=== PATIENT | female | born 1980 | race Hispanic/Latino ===

== ENCOUNTER 2020-04-30 07:53 | Inpatient (IN) | payer OTHER ==
[~2020-04-30] VITALS: Ht 157.5 cm; Wt 83.9 kg
--- NOTE | 2020-04-30 10:09 | PR ---
[facility] [address] [facility] [place], [place] [address] Signed Progress Notes IP Datetime Report Generated by CPN: 04/30/2020 10:09 PROGRESS NOTES: [id number] Impression: Normal Progression of Labor Procedures: Artificial ROM; Scalp Electrode Plan: Continue Present Management; Anticipate Vaginal Delivery VITAL SIGNS: [id number] Vital Signs: Reviewed; Within Normal Limits EXAM: [id number] Dilatation: 4.0 Effacement: 75 Station: -2 Contractions: trimble MEMBRANES: [id number] Membranes Status: Ruptured Comments: Getting uncomfortable, will call for Epidural. FETUS A: [id number] FHR Baseline: 140 Variability: Moderate 6-25bpm Accelerations: 10X10 Presentation: Vertex FETUS B: [id number] Signing Physician: Diane Fairbanks MD Copies: ~ *Electronically Signed* 04/30/20 1009 DIANE FAIRBANKS MD PATIENT NAME: LETY AN PROGRESS NOTE DATE OF : 80 PHYSICIAN: DIANE FAIRBANKS MD RPT #: [id number] REPORT IS CONFIDENTIAL AND NOT TO BE RELEASED WITHOUT AUTHORIZATION
--- NOTE | 2020-05-01 12:37 | PR ---
[facility] [address] [facility] [place] [address] Signed PP Progress Notes Datetime Report Generated by CPN: 05/01/2020 12:37 SUBJECTIVE: [id number] Pain: Within Normal Limits Nausea/Vomiting: Denies Vital Signs: [id number] Vital Signs: Reviewed; Within Normal Limits Notable Details: PP Hgb/Hct = 12.1/36.5 Abdomen/Uterus: Normal Lochia: Normal Extremities: Normal IMPRESSION/PLAN/PROCEDURES: [id number] Impression: Normal Progression Plan: Discharge Procedures: None Progress Notes: Doing well, without complaint, wants to go home. Signing Physician: Diane Fairbanks MD Copies: ~ *Electronically Signed* 05/01/20 1237 DIANE FAIRBANKS MD PATIENT NAME: LETY AN PROGRESS NOTE DATE OF : 80 PHYSICIAN: DIANE FAIRBANKS MD RPT #: [id number] REPORT IS CONFIDENTIAL AND NOT TO BE RELEASED WITHOUT AUTHORIZATION
== END 2020-05-01 14:00 | disposition home or self-care (01) | DRG 807 ==
LOC: FBC 07:53
PROVIDERS: ADMIT General Practice; ATTEND General Practice
PROC: 10E0XZZ Delivery of Products of Conception, External Approach (ICD-10-PCS; principal; 2020-04-30)
PROC: 10907ZC Drainage of Amniotic Fluid, Therapeutic from Products of Conception, Via Natural or Artificial Opening (ICD-10-PCS; 2020-04-30)
PROC: 00HU33Z Insertion of Infusion Device into Spinal Canal, Percutaneous Approach (ICD-10-PCS; 2020-04-30)
PROC: 3E0R3BZ Introduction of Anesthetic Agent into Spinal Canal, Percutaneous Approach (ICD-10-PCS; 2020-04-30)
DX: O24.424 Gestational diabetes mellitus in childbirth, insulin controlled (principal); Z37.0 Single live birth; Z3A.39 39 weeks gestation of pregnancy; O62.3 Precipitate labor; Z86.19 Personal history of other infectious and parasitic diseases
CPT/HCPCS: 01960; 36415; 85027; A9270; J2001; J2590; J7042

== ENCOUNTER 2021-01-17 07:20 | Day surgery (SDC) | payer OTHER ==
[~2021-01-17] VITALS: Ht 157.5 cm; Wt 73.2 kg
[~2021-01-17 07:20] MED LIST: PRENA1 PEARL S1 EACH PO
--- NOTE | 2021-01-17 12:44 | NUR ---
01/17/21 1244 Kya Winter 1237- PT ARRIVES TO PACU AROUSABLE TO VOICE. RESP EVEN AND UNLABORED. OXYGEN SAT HIGH 90'S TO 100% ON 10L VIA MASK. 1241- PT PROVIDED WARM BLANKETS PER HER REQUEST. PT ASKS IF THE SURGEYR IS OVER. PT UPDATED WHERE SHE IS AND HER SURGERY IS DONE. PT NODS. OXYGEN TITRATED DOWN TO 6L VIA MASK.
--- NOTE | 2021-01-17 13:42 | NUR ---
PATIENT BACK TO ROOM FROM PACU ON . RECEIVED REPORT FROM NAT LEÓN. PATIENT IS DROWSY. VSS. PATIENT RATES PAIN 2/10 AND DENIES NAUSEA. UMBILICAL INCISION HAD A SMALL AMOUNT OF DRAINAGE POOLING AND OTHER 2 LAP SITES CLEAN, DRY, AND INTACT. CLARK PAD HAD NO DRAINAGE. MASCORRO CATH HAD YELLOW URINE. BEAR HUGGER TURNED ON FOR PATIENT, LOWERED HOB, AND TURNED OFF LIGHTS. PATIENT WOULD LIKE ICE CHIPS FOR NOW. CALLL LIGHT WITHIN REACH.
--- NOTE | 2021-01-17 14:42 | NUR ---
PATIENT IS DROWSY BUT EASILY AWAKES AND ANSWERES QUESTIONS. VSS. RATES PAIN 2/10. DENIES NAUSEA. UMBILICAL INCISION HAS SOME POOLING WITH RED DRAINAGE. OTHER 2 LAP SITES HAVE SMALL AMOUNT OF RED DRAINAGE. PROVIDED PATIENT WITH JELLO AND WATER. BEAR HUGGER STILL IN USE. CALL LIGHT WITHIN REACH.
--- NOTE | 2021-01-17 15:08 | NUR ---
LUNCH ARRIVED TO PATIENTS ROOM.
--- NOTE | 2021-01-17 15:35 | NUR ---
1535-PATIENT AWAKE LAYING IN BED. VSS. RATES PAIN 2/10, DENIES NAUSEA. ALL 3 LAP SITES WITH SMALL AMOUNT OF RED DRAINAGE. CLARK PAD CLEAN, DRY, AND INTACT. PATIENT READY TO GET UP AND WALK. 1540-EMPTIED MASCORRO CATH WITH 325ML. PATIENT UP TO WALK WITH 1 RN ASSIST. GAIT STEADY AND TOLERATED WELL. 1545-DC'D MASCORRO CATH.
--- NOTE | 2021-01-17 17:45 | NUR ---
1615-PATIENT UP TO THE BATHROOM AND VOIDED 300ML. BACK TO ROOM TO GET DRESSED. 1630-PROVIDED PATIENT WITH DISCHARGE INSTRUCTIONS. PATIENT VERBALIZED UNDERSTANDING AND ALL QUESTIONS ANSWERED. PATIENT RATES PAIN 2/10. PATIENT AMBULATES TO WHEELCHAIR. PROVIDED WHEELCHAIR RIDE TO FRONT OF HOSPITAL WHERE HER SISTER WAS WAITING FOR HER.
--- NOTE | 2021-01-21 14:40 | PATH ---
[facility] [address] [place], [place] [address] Signed SPECIMEN(S): A UTERUS, CERVIX, BILATERAL TUBES SPECIMEN SOURCE: A. UTERUS, CERVIX, BILATERAL TUBES CLINICAL HISTORY: Lobular endocervical glandular hyperplasia FINAL PATHOLOGIC DIAGNOSIS: Uterus with bilateral fallopian tubes, hysterectomy and bilateral salpingectomy: - Inactive endometrium; no hyperplasia or neoplasia identified. - Leiomyoma. - Cervix with no significant pathologic changes; negative for dysplasia. - Bilateral fallopian tubes with no significant pathologic changes. BRP:cml:C2NR MICROSCOPIC EXAMINATION: Histologic sections of all submitted blocks are examined by light microscopy. These findings, together with the gross examination, support the pathologic diagnosis. GROSS DESCRIPTION: The specimen, labeled "Kasia An," and designated on the requisition "bilateral tubes, cervix, and uterus," is received in formalin and consists of a 121 gram uterus and cervix that is previously opened. Separate within the container are three segments of fallopian tube. The uterus is 4.6 x 4.5 x 8.7 cm (cornu-cornu x anterior-posterior x fundus-ectocervix). The serosal surface is pink and smooth. The ectocervical soft tissue is inked. The specimen has been previously opened laterally. The ectocervical mucosa is pale pink and smooth. Serial sectioning of the cervix fails to demonstrate any gross abnormalities. The triangular endometrial cavity is lined by a pink granular endometrium that has an average thickness of 0.2 cm. Sectioning through the uterus reveals a pink, moderately trabeculated myometrium with one pink well circumscribed intramural nodule that is 0.6 cm in greatest dimension. The first fallopian tube is 6.2 x 1.2 cm with delicate fimbriae. The serosa is violaceous and smooth. Cut sections reveal a pinpoint lumen. The second fallopian tube is 4.3 x 1.0 cm with delicate fimbriae and paratubal PATIENT NAME: LETY AN PATHOLOGY DATE OF : 80 REPORT #: [id number] PHYSICIAN: [facility] PCP: NO PRIMARY CARE PHYSICIAN REPORT IS CONFIDENTIAL AND NOT TO BE RELEASED WITHOUT AUTHORIZATION [facility] [address] [place], [place] [address] Signed cyst. The serosa is violaceous, smooth, and inked blue. Cut sections reveal a pinpoint lumen. A third segment of fallopian tube is present measuring 2.7 x 0.7 cm. The serosal surface is violaceous and smooth. No fimbriae are grossly identified. The tissue is inked green. Cut sections reveal a pinpoint lumen. Calculator Operator sections are submitted in eight cassettes. Cassette summary: (A1) first fallopian tube (A2) second fallopian tube (A3) third fallopian tube and intramural nodule (A4) 12 to 3 o'clock cervix (A5) 3 to 6 o'clock cervix (A6) 6 to 9 o'clock cervix (A7) 9 to 12 o'clock cervix (A8) uterine wall. FB (under the direct supervision of a pathologist) The Gross Description was prepared using a voice recognition system. The report was reviewed for accuracy; however, sound-alike word errors, addition and/or deletions may occur. If there is any question about this report, please contact Client Services. PERFORMING LABORATORY: The technical component was performed by [facility], [address] [place] [id number] (Reconciliation Clerk: Tiff Aldana MD; CLIA# [id number]). Professional interpretation was performed by [facility], [facility], [address] [place] [id number] (CLIA# [id number]). Diagnostician: Alex Guthrie MD Pathologist Electronically Signed 01/21/2021 Copies: ~ PATIENT NAME: LETY AN PATHOLOGY DATE OF : 80 REPORT #: [id number] PHYSICIAN: [facility] PCP: NO PRIMARY CARE PHYSICIAN REPORT IS CONFIDENTIAL AND NOT TO BE RELEASED WITHOUT AUTHORIZATION
--- NOTE | 2021-01-23 11:56 | OR ---
[facility] [address] [place], [place] [address] Signed DATE OF OPERATION: 01/17/2021 SURGEON: Heri Pop MD PREOPERATIVE DIAGNOSIS: Lobular endocervical glandular hyperplasia. POSTOPERATIVE DIAGNOSIS: Lobular endocervical glandular hyperplasia. PROCEDURE: Total laparoscopic hysterectomy with bilateral salpingectomy and cystoscopy. SENIOR DATA QUALITY ANALYST: Dr. Niño. ANESTHESIA: General. ESTIMATED BLOOD LOSS: 50 mL. SPECIMEN: Uterus, both fallopian tubes. DRAINS: Moreira to bladder. PACKING: None. FINDINGS: Cervix appeared normal. Uterus normal size and shape. The anterior cul-de-sac was free of any endometriosis or adhesions. The posterior cul-de-sac was free of any endometriosis or adhesions. The left tube was normal length and normal-appearing fimbriated end. No adhesions. There was a small paratubal cyst at distal portion of the tube. The left ovary is normal size and shape without any evidence of endometriosis or adhesions. The right tube was normal in length with a normal-appearing fimbriated end and no adhesions. Right ovary is normal size and shape without any evidence of endometriosis or adhesions. The rest of pelvis was free of any masses or adhesions. Electronically Signed By: HERI POP MD 01/23/21 1156 PATIENT NAME: LETY AN OPERATIVE REPORT DATE OF : 80 REPORT #: [id number] PHYSICIAN: HERI POP MD PCP: NO PRIMARY CARE PHYSICIAN REPORT IS CONFIDENTIAL AND NOT TO BE RELEASED WITHOUT AUTHORIZATION [facility] [address] [place], [place] [address] Signed COMPLICATIONS: None. DESCRIPTION OF PROCEDURE: The patient was brought to the operating room, placed in supine position. After adequate general anesthesia was obtained, she was placed in the dorsal lithotomy position, prepped and draped in usual sterile fashion. Moreira catheter was placed in the bladder. Weighted speculum was placed in the vagina and the anterior lip of the cervix grasped with an Allis clamp. The cervix was then serially dilated and the AGELON ? uterine manipulator carefully inserted through the cervix up to the uterine fundus. The balloon was filled with water and Allis clamp and weighted speculum removed. The cervical cap was slid up the manipulator and the vaginal cup slid up against the cervical cap to hold the cervical cap against the cervix and was then tightened in place. Attention was then drawn to the abdomen. A small infraumbilical skin incision was made with a scalpel after injecting the area with 0.25% Marcaine with epinephrine. Subcutaneous tissue was dissected with Metzenbaum scissors and the fascia identified, grasped with hemostats, elevated, nicked with Metzenbaum scissors and extended in a transverse fashion using Metzenbaum scissors. The finger dissection was used to open the muscle and peritoneum. Retention stitch of 0 Vicryl suture was placed above and below the fascial incision. The Jenny cannula and sleeve then entered the abdomen under direct visualization. The sleeve balloon was filled with air and then, the outer sleeve slid down and tightened in place. The two retention stitches were attached to the outer sleeve. The trocar was removed and laparoscope with video attachment entered the abdomen under direct visualization. The above findings were noted. A small skin incision was made approximately 10 cm lateral to the midline on the left side just below the level of the umbilicus. Prior to this, the area was transilluminated to help avoid any vessels. The area injected with 0.25% Marcaine with epinephrine and then, a small skin incision made with a scalpel, a bladed 5-mm trocar and sleeve entered the abdomen under direct visualization. The trocar was removed and the balloon filled with air and blunt grasper was inserted. On the right side, again approximately 10 cm lateral to the midline and just below the level of the umbilicus, the abdominal wall was transilluminated, a small skin incision made and then a Veress needle with expandable sleeve was placed into the abdomen under direct visualization. The Veress needle was removed and expandable trocar with sleeve was inserted through the expandable sleeve. Trocar was removed and the 2nd blunt grasper inserted, the above findings were confirmed. The LigaSure bipolar [place] forceps were used for dissection. The two fallopian tubes were removed by cauterizing and cutting down the length of the mesosalpinx and then cutting across the fallopian tube in the proximal portion of the tube. The two tubes were removed through the lateral port. The Electronically Signed By: HERI POP MD 01/23/21 1156 PATIENT NAME: LETY AN OPERATIVE REPORT DATE OF : 80 REPORT #: [id number] PHYSICIAN: HERI POP MD PCP: NO PRIMARY CARE PHYSICIAN REPORT IS CONFIDENTIAL AND NOT TO BE RELEASED WITHOUT AUTHORIZATION [address] [address] Signed utero-ovarian ligaments were cauterized in several places and cut on each side, then the left side was taken down, cauterizing and cutting the left round ligament, then the upper broad ligament. At this point, the anterior and posterior leaves of the broad ligament were individually cauterized and cut down the broad ligament towards the cervical cap and around the cervical cap to the midline anteriorly and posteriorly. This exposed the uterine vessels which were cauterized in several places and cut at the edge and inside the cervical cap with this side cleared off. The right upper pedicle was cauterized and cut including the round ligament and the upper broad ligament. The anterior and posterior leaves of the broad ligament were then individually cauterized and cut down the length of the broad ligament combining with previous dissection at the level of the cervical cap. Uterine vessels on this side were cauterized in several places and cut against right at the edge of the cervical cap and inside the cervical cap. This was taken down until just the vaginal wall was left. The Sonicision instrument was then used to cut through the vaginal cuff in the groove of the cervical cap starting posterior to anterior on the left side and then posterior to anterior on the right side, this removed the uterus and cervix from the vaginal wall. Attention was then drawn to the abdomen. The VCare uterine manipulator was gently removed and the cervix noted to be in the vagina, so the cervix was grasped with an Allis clamp and the uterus gently removed through the cuff. A sponge-filled glove was placed in the vagina and the abdomen re-insufflated. The entire pelvis was irrigated, suctioned, and examined, and any superficial bleeding spots were cauterized with [place] bipolar LigaSure forceps. The cuff was then closed using the EndoStitch with barbed suture. This was done starting at the right uterosacral ligament and placing the needle from posterior to anterior through the uterosacral ligament and then placing the stitch through the loop at the end of the barbed suture. The anterior edge was then stitched from posterior to anterior. The vaginal cuff was closed in this fashion from right to the left, posterior to anterior individually incorporating the posterior vaginal wall including the vaginal mucosa and the anterior wall incorporating the vaginal mucosa. This was continued over to the left uterosacral ligament where the suture was then taken back in a superficial fashion through the combined cuff to the midline where the suture was cut with laparoscopic scissors. The entire pelvis was irrigated, suctioned and examined. There was slight oozing and no specific bleeding, so the cuff was sprayed with Tisseel to help with hemostasis. At this point, good hemostasis was noted. All instruments were removed. The gas allowed to escape and the final sleeve removed. The infraumbilical fascial incision was closed using a running stitch of 0 Vicryl suture. The two retention stitches were tied together for further support. The three skin incisions were closed using subcuticular stitches of 4-0 Vicryl suture. Any superficial bleeding spots in the subcutaneous tissue were cauterized with the Bovie. Electronically Signed By: HERI POP MD 01/23/21 1156 PATIENT NAME: LETY AN OPERATIVE REPORT DATE OF : 80 REPORT #: [id number] PHYSICIAN: HERI POP MD PCP: NO PRIMARY CARE PHYSICIAN REPORT IS CONFIDENTIAL AND NOT TO BE RELEASED WITHOUT AUTHORIZATION [address] [address] Signed The Moreira catheter was then removed and cystoscopy performed. A 70-degree cystoscope was placed in the urethral opening and placed through the urethra into the bladder under direct visualization using sterile water as distending medium. The entire bladder was examined. The dome both sides in the bottom showed no evidence of puckering suture or defects or lacerations. Both ureteral orifices were identified and both showed good jets of urine. The cystoscope was then removed, the bladder drained and the sleeves removed. The Moreira catheter was placed back in the bladder. The patient tolerated the procedure well, went to recovery room in good condition. The sponge, needle and instrument count were correct at the end of the procedure. Heri Pop MD MJB/MODL /[id number] Copies: ~ Electronically Signed By: HERI POP MD 01/23/21 1156 PATIENT NAME: LETY AN OPERATIVE REPORT DATE OF : 80 REPORT #: [id number] PHYSICIAN: HERI POP MD PCP: NO PRIMARY CARE PHYSICIAN REPORT IS CONFIDENTIAL AND NOT TO BE RELEASED WITHOUT AUTHORIZATION
== END 2021-01-17 16:30 | disposition home or self-care (01) ==
LOC: DS 07:20
PROVIDERS: ATTEND General Practice
PROC: 0UT94ZZ Resection of Uterus, Percutaneous Endoscopic Approach (ICD-10-PCS; principal; 2021-01-17 09:00)
PROC: 0UT74ZZ Resection of Bilateral Fallopian Tubes, Percutaneous Endoscopic Approach (ICD-10-PCS; 2021-01-17 09:00)
DX: D25.9 Leiomyoma of uterus, unspecified (principal); Z91.09 Other allergy status, other than to drugs and biological substances
CPT/HCPCS: 00840; J0330; J0690; J1100; J1644; J1885; J2250; J2405; J2704; J2765; J3010; J7121